=== PATIENT | male | born 2000 | race Caucasian/White ===

== ENCOUNTER 2019-05-30 06:32 | Day surgery (SDC) | payer MEDICAID ==
[2019-05-30] MEDS ORDERED: Lidocaine 1% with EPINEPHrine 1:100,000 50 ML MDV ONE (06:48)
[2019-05-30] MEDS ORDERED: Bupivacaine 0.5% 50 ML MDV ONE (06:48)
[2019-05-30] MEDS ORDERED: Sodium Chloride 0.9% 1,000 ML IV SCH (07:00)
[2019-05-30] MEDS ORDERED: Midazolam 1 MG/ML 2 ML SDV ONE (07:15)
[2019-05-30] MEDS ORDERED: fentaNYL 100 MCG/2 ML SDV ONE (07:15)
[2019-05-30] MEDS ORDERED: Propofol 200 MG/20 ML SDV ONE (07:16)
[2019-05-30] MEDS ORDERED: ceFAZolin 2 GM in Sodium Chloride 0.9% 50 ML IV ONE (07:30)
--- NOTE | 2019-05-30 13:34 | OR ---
DATE OF PROCEDURE: 05/30/2019 SURGEON: Sami Nicole MD PROCEDURE: Excision of mass of left forearm. COMPLICATIONS: None. PRINTED CIRCUIT LAYOUT TAPER: None. ANESTHESIA: MAC/local. INDICATIONS: 19-year-old male, who has had angiolipomas removed in the operating room previously due to associated bleeding with these, requiring removal of an additional one. RISKS: Risks, benefits, alternatives, and limitations including, but not limited to infection, bleeding, and injury to associated structures were explained to the patient, who wished to proceed. PROCEDURE IN DETAIL: The patient was placed in the supine position. The mass, which was identified by the patient preoperatively, an incision was made approximately 1 cm over this. This was carried down with electrocautery to the lesion. This was able to be circumnavigated and excised. This was more consistent with lipoma rather than an angiolipoma. Blood supply was small and was cauterized. This was then closed with 3-0 Vicryl and 4-0 Vicryl interrupted running fashion. Dermabond was applied. The patient tolerated the procedure well. Sami Nicole MD /[id number]
== END 2019-05-30 09:35 | disposition home or self-care (01) ==
LOC: JP.SDS 06:32
PROVIDERS: ATTEND Surgery
DX: D17.22 Benign lipomatous neoplasm of skin and subcutaneous tissue of left arm (principal); Z88.1 Allergy status to other antibiotic agents; Z79.899 Other long term (current) drug therapy
CPT/HCPCS: 25075; 88304; J2250; J2704; J3010; J3490; J7030; J7050

== ENCOUNTER 2023-12-10 15:57 | Emergency (ER) | payer OTHER ==
[2023-12-10 17:46] LABS: BASOPHILS ABSOLUTE AUTO 0.03 K/uL (0.00-0.10); BASOPHILS PERCENT AUTO 0.6 % (0.1-1.3); EOSINOPHILS ABSOLUTE AUTO 0.37 K/uL (0.00-0.40); EOSINOPHILS PERCENT AUTO 6.9 % (0.0-5.4); HEMATOCRIT 44.2 % (38.4-49.7); HEMOGLOBIN 15.7 g/dL (12.9-16.9); IMMATURE GRAN PERCENT AUTO 0.2 % (0.0-0.7); LYMPHOCYTES ABSOLUTE AUTO 1.71 K/uL (0.8-3.3); LYMPHOCYTES PERCENT AUTO 31.7 % (11.4-47.7); MEAN CORPUSCULAR HEMOGLOBIN 31.8 pg (31.6-35.5); MEAN CORPUSCULAR HGB CONC 35.5 g/dL (31.6-35.5); MEAN CORPUSCULAR VOLUME 89.5 fL (81.4-99.0); MONOCYTES PERCENT AUTO 7.4 % (3.3-12.6); NEUTROPHILS ABSOLUTE AUTO 2.88 K/uL (1.0-7.6); NEUTROPHILS PERCENT AUTO 53.2 % (40.0-78.1); PLATELET COUNT,PLT 240 K/uL (130-375); RED BLOOD CELL COUNT 4.94 M/uL (4.14-5.76); WHITE BLOOD CELL COUNT,WBC 5.4 K/uL (3.2-11.0)
[2023-12-10 17:49] LABS: IMMATURE GRAN ABSOLUTE AUTO 0.01 K/uL (0.00-0.23)
[2023-12-10 18:11] LABS: APPEARANCE,URINE CLEAR (CLEAR); BILIRUBIN,URINE NEGATIVE (NEGATIVE); COLOR,URINE YELLOW (YELLOW); GLUCOSE,URINE NEGATIVE (NEGATIVE); KETONES,URINE NEGATIVE (NEGATIVE); LEUKOCYTE ESTERASE,URINE NEGATIVE (NEGATIVE); NITRITE,URINE NEGATIVE (NEGATIVE); OCCULT BLOOD,URINE NEGATIVE (NEGATIVE); PROTEIN,URINE NEGATIVE (NEGATIVE); UROBILINOGEN,URINE 0.2 EU/dL (0.2-1.0)
[2023-12-10 18:18] LABS: AMORPHOUS SEDIMENT,URINE NOT SEEN; BACTERIA,URINE NOT SEEN; EPITHELIAL CELLS,URINE NOT SEEN; MUCUS,URINE NOT SEEN; RBC,URINE 0-5 (0-5); WBC,URINE NOT SEEN (0-5)
== END 2023-12-10 18:34 | disposition home or self-care (01) ==
LOC: JP.ED 15:57
DX: K59.00 Constipation, unspecified (principal); Z88.8 Allergy status to other drugs, medicaments and biological substances; Z79.899 Other long term (current) drug therapy
CPT/HCPCS: 36415; 74018; 74018-26; 81001; 85025; 99283; 99284